=== PATIENT | female | born 1950 | race Caucasian/White ===

== ENCOUNTER → 2021-05-15 10:15 | Outpatient (CLI) | payer MEDICARE, BC, SELFPAY ==
[2021-05-15 12:21] LABS: Calcium,Total 12.1 mg/dL (8.5-10.1)
[2021-05-15 12:42] LABS: Vitamin B12 > 2000 pg/mL (211-911)
[2021-05-15 12:43] LABS: PTHIN 41.8 pg/mL (18.4-80.1); Vitamin D,25 Hydroxy 66.1 ng/mL
== END ==
PROVIDERS: Referring Provider Internal Medicine Endocrinology, Diabetes & Metabolism; Visit Provider Internal Medicine Endocrinology, Diabetes & Metabolism
DX: E53.8 Deficiency of other specified B group vitamins (principal); E55.9 Vitamin D deficiency, unspecified
CPT/HCPCS: 36415; 82306; 82310; 82607; 83970